=== PATIENT | female | born 1945 | race Caucasian/White ===

== ENCOUNTER 2022-10-27 10:32 | Observation (INO) ==
[2022-10-27] MEDS ORDERED: IOPAMIDOL 100 ML BOTTLE IV ONE (10:33)
--- NOTE | 2022-10-27 10:46 | Emergency Department Note ---
HPI General Chief complaint: Stroke Symptoms Stated complaint: Balance off Time Seen by Provider: 10/27/22 10:45 Source: patient Mode of arrival: wheelchair Limitations: no limitations History of Present Illness HPI Narrative: Narrative: Patient is a 77-year-old female with a complex medical history who presents to the emergency department due to concern with her speech. Patient arrived with slurred speech and difficulty expressing what she wanted to express. She was brought back to the emergency department quickly due to concern for stroke. She endorsed speech concerns as well as imbalance. She also endorsed back pain with radiation to her chest. She denied any other symptoms at that time. She devan rand stated to me that her symptoms began at 8:30 AM, but when speaking to the teleneurologist stated that she did have some unsteadiness to her gait with possible concern for ataxia last night. Related Data Home Medications Medication Instructions Recorded Confirmed cholecalciferol (vitamin D3) 25 25 mcg PO QDAY 09/20/21 10/27/22 mcg (1,000 unit) capsule methimazole 10 mg tablet 10 mg PO .4 times week 09/20/21 10/27/22 calcium carbonate 600 mg-vitamin 1 tab PO BID 04/29/22 10/27/22 D3 10 mcg (400 unit) chewable tablet (Calcium 600 with Vitamin D3) triamcinolone acetonide 55 mcg 1 spray intranasal QDAY PRN 04/29/22 10/27/22 nasal spray aerosol (Nasacort) Congestion amlodipine 5 mg tablet 5 mg PO QHS 10/27/22 10/27/22 bupropion HCl 150 mg 24 hr tablet, 300 mg PO QAM 10/27/22 10/27/22 extended release donepezil 5 mg tablet 5 mg PO QHS 10/27/22 10/27/22 fluorometholone 0.1 % eye 1 drp ophthalmic (eye) DAILY 10/27/22 10/27/22 drops,suspension (FML Liquifilm) losartan 100 1 tab PO QAM 10/27/22 10/27/22 mg-hydrochlorothiazide 25 mg tablet (Hyzaar) metoprolol tartrate 25 mg tablet 12.5 mg PO BID 10/27/22 10/27/22 Previous Rx's Medication Instructions Recorded FreeStyle Lite Strips (blood sugar #100 ea 03/31/20 diagnostic) dulaglutide 0.75 mg/0.5 mL 1.5 mg subcut QWEEK #4 mL 01/22/22 subcutaneous pen injector ([facility]) pen needle, diabetic 32 gauge x See Rx Instructions .Route 02/11/22 5/16" .COMPLEX #100 ea albuterol sulfate 90 mcg/actuation 2 puff inhalation Q4H PRN 03/13/22 aerosol inhaler shortness of breath or wheezing #17 grams trazodone 50 mg tablet 50 mg PO QHS Insomnia #90 tabs 04/16/22 lidocaine 5 % topical patch 1 patch topical QDAY PRN pain #15 04/29/22 ea zolpidem 5 mg tablet (Ambien) 5 mg PO QHS PRN sleep #2 tabs 08/24/22 ondansetron 4 mg disintegrating 4 mg PO Q8H PRN nausea and 09/09/22 tablet vomiting #10 tabs methylphenidate HCl 18 mg 18 mg PO QAM ADHD #28 tabs 09/26/22 tablet,extended release 24 hr montelukast 10 mg tablet 10 mg PO QHS #30 tabs 10/01/22 wedge pillow #1 ea 10/01/22 Prothestic Bra #1 ea 10/09/22 gabapentin 100 mg capsule 100 mg PO QHS #30 caps 10/09/22 insulin detemir U-100 100 unit/mL 16 unit (0.16 mL) subcut QHS 10/09/22 (3 mL) subcutaneous pen (Levemir Diabetes with hyperglycemia 90 FlexTouch U-100 Insulin) days #14.4 mL potassium chloride 10 mEq 10 meq PO BID #180 tabs 10/14/22 tablet,extended release pantoprazole 40 mg tablet,delayed 40 mg PO QDAY #14 tabs 10/21/22 release Aspirin 81 mg PO DAILY 30 days #30 tabs 10/28/22 atorvastatin 40 mg tablet 40 mg PO DAILY 30 days #30 tabs 10/28/22 Allergies Allergy/AdvReac Type Severity Reaction Status Date / Time benazepril [From Lotensin] AdvReac Mild Dry Mucus Verified 10/27/22 18:47 Membranes [id number] AdvReac Mild Other Verified 10/27/22 18:47 [From Trelegy Ellipta] fluoxetine [From Prozac] AdvReac Mild Other Verified 10/27/22 18:47 metformin [From Glucophage] AdvReac Mild Diarrhea Verified 10/27/22 18:47 metoclopramide [From Reglan] AdvReac Mild Dry Mucus Verified 10/27/22 18:47 Membranes metronidazole [From Flagyl] AdvReac Mild Nausea Verified 10/27/22 18:47 morphine AdvReac Mild Other Verified 10/27/22 18:47 nitroglycerin AdvReac Mild Other Verified 10/27/22 18:47 Rosiglitazone [From Avandia] AdvReac Mild Other Verified 10/27/22 18:47 sertraline [From Zoloft] AdvReac Mild Other Verified 10/27/22 18:47 Qdxntdt-RZV-LnO Reductase AdvReac Mild myalgias Verified 10/27/22 18:47 Inhibitor [Phinuee-Sjz-Jva Reductase Inhibitor] umeclidinium AdvReac Mild Other Verified 10/27/22 18:47 [From Trelegy Ellipta] vilanterol AdvReac Mild Other Verified 10/27/22 18:47 [From Trelegy Ellipta] Review of Systems ROS ROS Narrative: Narrative: Constitutional: Reports weakness; Denies fever Eyes: Denies eye pain or vision change ENT ED: Denies throat pain or rhinorrhea Cardiovascular: Denies chest pain, dyspnea on exertion, orthopnea or edema Respiratory: Denies shortness of breath or cough Gastrointestinal: Denies abdominal pain, nausea, vomiting, diarrhea, constipation, hematochezia or melena Musculoskeletal: Reports back pain; Denies myalgia Integumentary: Denies rash or lesions Neurological: Reports weakness, paresthesias and abnormal gait; Denies headache, numbness, confusion or dizziness Endocrine: Denies fatigue or polyuria Hematological/Lymphatic: Denies easy bleeding or easy bruising [facility] Narrative Patient History Narrative: Narrative: Medical/Surgical/Family History All Active Problems (Updated 11/03/22 @ 11:49 by Guerrero Munoz MD) Acute focal neurologic deficit with complete resolution (Acute) TIA (transient ischemic attack) (Acute) Hyponatremia (Acute) UTI (urinary tract infection) (Acute) ADD (attention deficit disorder) (Chronic) Asthma (Chronic) Degeneration of lumbar or lumbosacral intervertebral disc (Chronic) Depressive disorder (Chronic) Diverticulosis of colon (Chronic) Esophageal reflux (Chronic) Fatigue (Chronic) Fatty liver disease, nonalcoholic (Chronic) Hernia, hiatal (Chronic) Bilateral inguinal hernia without obstruction or gangrene (Chronic) Hypertension, essential (Chronic) Mixed hyperlipidemia (Chronic) Sleep apnea (Chronic) Vitamin D deficiency (Chronic) Carcinoma of breast (Chronic) Insomnia (Chronic) Sinusitis, chronic (Chronic) Graves disease (Chronic) Cognitive impairment (Chronic) Herpes zoster (Acute) Abdominal hernia without obstruction and without gangrene (Acute) Medicare annual wellness visit, subsequent (Acute) Medication management (Acute) Eustachian tube dysfunction (Acute) Polyarthralgia (Chronic) Diabetes mellitus with neuropathy (Chronic) CKD (chronic kidney disease) stage 3, GFR 30-59 ml/min (Chronic) MDD (major depressive disorder), recurrent episode, moderate (Chronic) Generalized anxiety disorder (Chronic) Strain of thoracic back region (Acute) Hypertension (Chronic) Upper back pain on left side (Acute) Diverticulitis (Acute) Chronic diarrhea (Chronic) Weakness of both legs (Acute) Emphysema of lung (Acute) Hip pain, bilateral (Acute) Left knee pain (Acute) Allergies (Chronic) Restless legs (Chronic) History of sleep apnea (Chronic) Hypersomnia (Chronic) Snoring (Chronic) Gastroesophageal reflux disease (Chronic) Cough (Chronic) Dyspnea (Chronic) History of asthma (Chronic) Environmental allergies (Chronic) Sensation of fullness in right ear (Chronic) Obstructive sleep apnea (Chronic) Scarring of lung (Chronic) Lung nodule (Chronic) Abnormal EKG (Acute) Medical History Abnormal EKG sleep study, ? 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 s/p lumpectomy. Completed postop radiation treatment 10/04/15 Chronic diarrhea CKD (chronic kidney disease) stage 3, GFR 30-59 ml/min Closed compression fracture of body of lumbar vertebra (08/26/14-Dr Gee) Colon polyps (10/31/14) 11/02/2015-TA TA HP Degeneration of lumbar or lumbosacral intervertebral disc (08/26/14-Dr Gee) Degenerative joint disease Depressive disorder Diabetes mellitus with hyperglycemia Diabetes mellitus with hyperglycemia Diabetes mellitus with neuropathy Diverticulitis of colon (09/13/2014-Dr Covington) Diverticulosis of colon Dyspepsia History of dyspepsia; EGD in 02/2011 showing only hiatal hernia, stable on proton pump inhibitor; recent gastric emptying study and review by Dr. Olson in February-March 2013. Emphysema of lung possible mild findings, PFT 02/26 Encounter for Health Maintenance Examination in Adult Esophageal reflux Eustachian tube dysfunction Fatigue Fatty liver disease, nonalcoholic No notable findings/abnormalities CT 03/27 Graves disease Graves' disease Hemorrhoids 2004 Hemorrhoids seen on colonoscopy in [place] in 2004. Update at 10 years. Hernia, hiatal Herpes zoster Hip pain, bilateral Hypertension, essential Immunization deficiency Insomnia Knee pain Patient has right knee pain. Left knee pain Low back pain Medicare annual wellness visit, subsequent Medication management Mixed hyperlipidemia Mixed hyperlipidemia with multiple medicine intolerances, diet treated Mood disturbance Plantar fasciitis of left foot 09/25/2015-Rodrigo Polyarthralgia Sensation of fullness in right ear Shoulder pain Patient has right shoulder pain. Sleep apnea Had CPAP, noncompliant Splenomegaly Mild Upper back pain on left side Vaginal pain Possible lichen planus Vitamin D deficiency Weakness of both legs Weight loss due to medication Personal Hx. Use of Weight Loss Drugs Previous Redux use with normal echo in 2001 showing only left ventricular hypertrophy and valvular abnormality. Surgical History History of arthroscopic knee surgery 1998 Right knee History of carpal tunnel release 1989 Bilateral carpal tunnel surgery History of cholecystectomy 1980 Status post open cholecystectomy History of colonoscopy (10/31/14) 11/02/2015-TA 10/31/2014-TA HP 2004-Colonoscopy in [place] in 2004 showing diverticuli and hemorrhoids; update at 10 years History of esophagogastroduodenoscopy 02/2011 EGD shows only hiatal hernia, Patient had history of dyspepsia which is stable on proton pump inhibitor, recent gastric emptying study and review by Dr. Olson in February-March 2013. History of gastric stapling 1978 Status post gastric stapling in 1978 with reassessment in [place] in December of 2011 for consideration of gastric bypass and declined History of hernia surgery Bilateral hernia surgeries in distant past History of oophorectomy History of right hip replacement (12/06/14-Deborah) History of shoulder surgery - Right shoulder/ Left shoulder/ Right reverse total shoulder History of surgery A & P Repair History of surgery (08/26/07) Hemorrhoid banding History of vaginal hysterectomy 1996 Status post vaginal hysterectomy/oophorectomy, A&P repair 1996; estrogen replacement therapy; Breast sxam stable, mammogram done 09-24-2012 Family History Aunt Asthma Great Grandfather Asthma Uncle Asthma Mother Malignant neoplasm of female breast Epilepsy Family history of arthritis Disorder of thyroid Father Depression Family history of arthritis Malignant neoplasm of prostate Unknown Diabetes mellitus Essential hypertension Acute myocardial infarction Sister Myasthenia gravis Daughter Heart attack Social History Smoking Status: Former smoker Alcohol Intake Frequency: holiday/special occasion only Substance Use: does not use Exam Narrative Narrative: Narrative: General Limitations: no limitations General appearance: Present alert and in no apparent distress; Absent anxious, appears intoxicated or sleepy Head Head: Present atraumatic and normocephalic Eye Eye: Present PERRL and EOMI; Absent scleral icterus or nystagmus ENT ENT: Present mucous membranes moist; Absent nasal congestion Neck Neck: Present full ROM; Absent tenderness Chest Chest: Present normal inspection and symmetric chest wall rise; Absent tenderness Respiratory Respiratory: Present normal lung sounds bilaterally; Absent respiratory distress or accessory muscle use Cardiovascular Cardiovascular: Present regular rate, normal rhythm and normal heart sounds Adbominal Abdominal: Present soft and normal bowel sounds; Absent distention, tenderness, guarding, rebound or rigidity Extremities Extremities: Present normal inspection and full ROM; Absent tenderness Back Back: Present normal inspection and full ROM; Absent tenderness, CVA tenderness (R) or CVA tenderness (L) Neurological Neurological: Present alert, oriented X3, normal gait, motor sensory deficit (Drift without hitting bed of left lower extremity), reflexes normal and other (Ataxia in bilateral upper extremities); Absent CN II-XII intact (Left-sided facial droop) Psychiatric Psychiatric: Present normal affect and normal mood Skin Skin: Present warm (WNL), dry and normal color Course Vital Signs Vital signs: Vital Signs Temperature 96.9 F L 10/27/22 10:39 Pulse Rate 76 10/27/22 10:39 Respiratory Rate 16 10/27/22 10:39 Blood Pressure 159/97 10/27/22 10:39 Pulse Oximetry (%) 99 10/27/22 10:39 Oxygen Delivery Method Room Air 10/27/22 10:39 Temperature 97.0 F 10/28/22 08:02 Pulse Rate 59 L 10/28/22 10:01 Respiratory Rate 14 10/28/22 09:39 Blood Pressure 124/64 10/28/22 10:01 Pulse Oximetry (%) 96 10/28/22 10:01 Oxygen Delivery Method Room Air 10/28/22 10:01 Oxygen Flow Rate (L/min) 2 10/28/22 08:02 MDM MDM Narrative Medical decision making narrative: Narrative: Patient is a 77-year-old female with a complex medical history who presents to the emergency department due to concern with her speech. A stroke alert was called immediately after initial assessment. At that time she had an NIH stroke scale of 5. I discussed the patient with teleneurology who recommended CT imaging including CT angio head and neck. They were concerned about patient's back pain, and patient told them that her symptoms had actually started the day before, so patient is not a candidate for TNKase at this time. Patient's CT scans are reassuring without any acute abnormality. Patient's symptoms completely resolved including back pain upon reassessment. I discussed patient with teleneurology again, and they recommended that patient be admitted for stroke work-up. I spoke with our hospitalist who agreed to see and evaluate patient for admission. Lab Data 10/27/22 10:43 Labs: Lab Results 10/27/22 10/27/22 10/27/22 Range/Units 10:43 10:43 10:43 WBC 6.7 (4.5-11.0) K/mcL RBC 4.84 (3.59-5.38) M/mcL Hgb 13.5 (11.2-15.7) g/dL Hct 40.2 (34.1-44.9) % POC Hct (36-48) MCV 83.1 (80.0-100.0) fL MCH 27.9 (26.0-34.0) pg MCHC 33.6 (31.0-36.0) g/dL RDW 13.0 (11.5-14.5) % Plt Count 212 (140-440) K/mcL MPV 9.5 (8.8-12.5) fL Immature Gran % (Auto) 0.3 (0.0-0.5) % Neut % (Auto) 58.8 (38.0-78.0) % Lymph % (Auto) 30.3 (15.5-49.0) % Bucks % (Auto) 8.4 (1.0-12.0) % Eos % (Auto) 1.4 (0.0-7.0) % Baso % (Auto) 0.8 (0.0-2.0) % Lymph # (Auto) 2.02 (1.50-4.80) K/mcL Bucks # (Auto) 0.56 (0.10-0.90) K/mcL Eos # (Auto) 0.09 (0.00-0.70) K/mcL Baso # (Auto) 0.05 (0.00-0.30) K/mcL Immature Gran # 0.02 (0.00-0.05) K/mcl Absolute Neutrophils 3.92 (1.80-8.00) K/mcL POC PT (11.9-14.5) POC INR (0.8-1.2) APTT 30.1 (20.0-37.0) sec POC Sodium (133-145) POC Potassium (3.3-5.1) POC Chloride (96-108) POC Total CO2 (22-30) POC BUN (6-20) POC Creatinine (0.6-1.2) POC Glucose (70-105) POC WB Ioniz Calcium (1.16-1.32) Total Bilirubin 0.8 (0.1-1.0) mg/dL Direct Bilirubin < 0.2 (0-0.3) mg/dL AST 23 (<32) U/L ALT 17 (<40) U/L Alkaline Phosphatase 90 (39-117) U/L Total Protein 6.3 (5.9-8.4) gm/dL Albumin 4.0 (3.2-5.2) gm/dL Globulin 2.3 (2.2-3.7) gm/dL Urine Color Urine Appearance (Clear) Urine pH (5.0-9.0) Ur Specific Newman (1.000-1.035) Urine Protein (Negative) mg/dL Urine Glucose (UA) (Negative) mg/dL Urine Ketones (Negative) mg/dL Urine Occult Blood (Negative) mg/dL Urine Nitrate (Negative) Urine Bilirubin (Negative) mg/dL Urine Urobilinogen mg/dL Ur Leukocyte Esterase (Negative) /uL Urine RBC (0-3) /hpf Urine WBC (0-4) /hpf Ur Squamous Epith Cells (0-4) /hpf Urine Bacteria (0) /hpf Ur Culture Indicated? POC Troponin I (0.00-0.08) 10/27/22 10/27/22 10/27/22 Range/Units 10:47 10:51 11:19 WBC (4.5-11.0) K/mcL RBC (3.59-5.38) M/mcL Hgb (11.2-15.7) g/dL Hct (34.1-44.9) % POC Hct 42.0 (36-48) MCV (80.0-100.0) fL MCH (26.0-34.0) pg MCHC (31.0-36.0) g/dL RDW (11.5-14.5) % Plt Count (140-440) K/mcL MPV (8.8-12.5) fL Immature Gran % (Auto) (0.0-0.5) % Neut % (Auto) (38.0-78.0) % Lymph % (Auto) (15.5-49.0) % Bucks % (Auto) (1.0-12.0) % Eos % (Auto) (0.0-7.0) % Baso % (Auto) (0.0-2.0) % Lymph # (Auto) (1.50-4.80) K/mcL Bucks # (Auto) (0.10-0.90) K/mcL Eos # (Auto) (0.00-0.70) K/mcL Baso # (Auto) (0.00-0.30) K/mcL Immature Gran # (0.00-0.05) K/mcl Absolute Neutrophils (1.80-8.00) K/mcL POC PT 12.8 (11.9-14.5) POC INR 1.1 (0.8-1.2) APTT (20.0-37.0) sec POC Sodium 128 L (133-145) POC Potassium 3.9 (3.3-5.1) POC Chloride 90 L (96-108) POC Total CO2 29.0 (22-30) POC BUN 23 H (6-20) POC Creatinine 0.9 (0.6-1.2) POC Glucose 152 H (70-105) POC WB Ioniz Calcium 1.15 L (1.16-1.32) Total Bilirubin (0.1-1.0) mg/dL Direct Bilirubin (0-0.3) mg/dL AST (<32) U/L ALT (<40) U/L Alkaline Phosphatase (39-117) U/L Total Protein (5.9-8.4) gm/dL Albumin (3.2-5.2) gm/dL Globulin (2.2-3.7) gm/dL Urine Color Urine Appearance (Clear) Urine pH (5.0-9.0) Ur Specific Newman (1.000-1.035) Urine Protein (Negative) mg/dL Urine Glucose (UA) (Negative) mg/dL Urine Ketones (Negative) mg/dL Urine Occult Blood (Negative) mg/dL Urine Nitrate (Negative) Urine Bilirubin (Negative) mg/dL Urine Urobilinogen mg/dL Ur Leukocyte Esterase (Negative) /uL Urine RBC (0-3) /hpf Urine WBC (0-4) /hpf Ur Squamous Epith Cells (0-4) /hpf Urine Bacteria (0) /hpf Ur Culture Indicated? POC Troponin I < 0.02 (0.00-0.08) 10/27/22 Range/Units 12:41 WBC (4.5-11.0) K/mcL RBC (3.59-5.38) M/mcL Hgb (11.2-15.7) g/dL Hct (34.1-44.9) % POC Hct (36-48) MCV (80.0-100.0) fL MCH (26.0-34.0) pg MCHC (31.0-36.0) g/dL RDW (11.5-14.5) % Plt Count (140-440) K/mcL MPV (8.8-12.5) fL Immature Gran % (Auto) (0.0-0.5) % Neut % (Auto) (38.0-78.0) % Lymph % (Auto) (15.5-49.0) % Bucks % (Auto) (1.0-12.0) % Eos % (Auto) (0.0-7.0) % Baso % (Auto) (0.0-2.0) % Lymph # (Auto) (1.50-4.80) K/mcL Bucks # (Auto) (0.10-0.90) K/mcL Eos # (Auto) (0.00-0.70) K/mcL Baso # (Auto) (0.00-0.30) K/mcL Immature Gran # (0.00-0.05) K/mcl Absolute Neutrophils (1.80-8.00) K/mcL POC PT (11.9-14.5) POC INR (0.8-1.2) APTT (20.0-37.0) sec POC Sodium (133-145) POC Potassium (3.3-5.1) POC Chloride (96-108) POC Total CO2 (22-30) POC BUN (6-20) POC Creatinine (0.6-1.2) POC Glucose (70-105) POC WB Ioniz Calcium (1.16-1.32) Total Bilirubin (0.1-1.0) mg/dL Direct Bilirubin (0-0.3) mg/dL AST (<32) U/L ALT (<40) U/L Alkaline Phosphatase (39-117) U/L Total Protein (5.9-8.4) gm/dL Albumin (3.2-5.2) gm/dL Globulin (2.2-3.7) gm/dL Urine Color Yellow Urine Appearance Clear (Clear) Urine pH 7.0 (5.0-9.0) Ur Specific Newman 1.038 (1.000-1.035) Urine Protein Negative (Negative) mg/dL Urine Glucose (UA) Negative (Negative) mg/dL Urine Ketones Negative (Negative) mg/dL Urine Occult Blood Negative (Negative) mg/dL Urine Nitrate Negative (Negative) Urine Bilirubin Negative (Negative) mg/dL Urine Urobilinogen Negative mg/dL Ur Leukocyte Esterase 25 A (Negative) /uL Urine RBC < 1 (0-3) /hpf Urine WBC < 1 (0-4) /hpf Ur Squamous Epith Cells 0 (0-4) /hpf Urine Bacteria None (0) /hpf Ur Culture Indicated? No POC Troponin I (0.00-0.08) Discharge Plan Patient/Caregiver Discharge Instructions Pt seen by R DEVELOPER/PA only: No Clinical Impression: Acute focal neurologic deficit with complete resolution Activity: increase activity as tolerated Patient Disposition: Xfer As Inpt ([facility]) Discharge Date/Time: 10/27/22 17:00
[2022-10-27 10:52] LABS: POC Calcium, Ionized 1.15 (1.16-1.32); POC Creatinine 0.9 (0.6-1.2); POC Potassium 3.9 (3.3-5.1)
--- NOTE | 2022-10-27 10:58 | Cat Scan Report ---
History: Acute stroke symptoms TECHNIQUE: The brain was imaged without contrast in an axial plane at 2.5 mm intervals. Sagittal and coronal reformats were created. The radiation exposure was limited using dose reduction technology. FINDINGS: There are mild age-related degenerative changes with mild generalized atrophy. There is no evidence of an infarct, hemorrhage or mass effect. The ventricles are normal in size. There are small physiologic calcifications in the globus pallidus bilaterally. No abnormal extra-axial fluid collection is present. There is mild mucosal thickening along the griffith of a few ethmoid air cells and the sphenoid sinus. Allowing for differences in technique there has been little change from the prior brain MRI done on 03/14/11. IMPRESSION: No acute abnormality Dr. Munoz was called with the report Interpreted and Authenticated by: Jerald Canales 10/27/22
[2022-10-27 11:22] LABS: POC INR 1.1 (0.8-1.2); POC Pro Time 12.8 (11.9-14.5)
--- NOTE | 2022-10-27 11:31 | Cat Scan Report ---
History: Acute stroke symptoms with difficulty speaking and disc equilibrium TECHNIQUE: Following injection of intravenous nonionic contrast, arterial phase images were acquired from the level of the midthoracic aorta to the top of the head. Sagittal coronal and MIPS images were created along with curved linear reformatted views of the carotid arteries. The radiation exposure was limited using dose reduction technology. FINDINGS: NECK: The visualized portion of the heart appears normal. There few calcified plaques in the left anterior descending coronary artery. Thoracic aorta is normal in caliber with no aneurysm or dissection. There are few scattered plaques along the wall. Origins of the great vessels arising from the aorta are normal except for moderate amount of plaque distortion the left subclavian. This is not causing stenosis. The right common carotid is moderately tortuous but normal in caliber. There is a moderate amount calcified plaque at the origin of the right internal carotid. This is causing less than 50% stenosis. There is mild plaque formation in the left carotid bifurcation with less than 25% stenosis. Both internal carotids are very tortuous and elongated. The right internal carotid forms a full loop. The vertebral arteries are normal in caliber. The left is dominant. Patient has a multinodular goiter. There is an indeterminate nodule inferiorly in the left lobe which measures 2.0 x 2.5 cm. This had been evaluated by ultrasound on . The nodule measured 1.9 x 1.9 cm that time. There is degenerative disc disease and arthritis at multiple levels in the mid and lower neck. Brain: [place] is normal. The anterior communicating artery is normal. 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 There is normal blood flow in the anterior and middle cerebral arteries as well as both posterior cerebral arteries. Posterior fossa circulation is normal. There is no intracranial vascular occlusion stenosis or thrombosis. No aneurysm or abnormal enhancing lesion is present. IMPRESSION: Atherosclerosis in the carotid bifurcations bilaterally causing a less than 50% stenosis the right internal carotid and a nonhemodynamically stenosis of the left internal carotid. Normal intracranial arterial circulation Multinodular goiter. There is an enlarging indeterminate nodule in the left lobe. A follow-up thyroid ultrasound as an outpatient is suggested. Dr. Munoz was called with the report Interpreted and Authenticated by: Jerald Canales 10/27/22
[2022-10-27 11:37] LABS: Basophils # (Auto) 0.05 K/mcL (0.00-0.30); Basophils % (Auto) 0.8 % (0.0-2.0); Eosinophils # (Auto) 0.09 K/mcL (0.00-0.70); Eosinophils % (Auto) 1.4 % (0.0-7.0); Hematocrit 40.2 % (34.1-44.9); Hemoglobin 13.5 g/dL (11.2-15.7); Lymphocytes # (Auto) 2.02 K/mcL (1.50-4.80); Lymphocytes % (Auto) 30.3 % (15.5-49.0); Mean Cell Volume 83.1 fL (80.0-100.0); Mean Corpuscular HGB Conc 33.6 g/dL (31.0-36.0); Mean Platelet Volume 9.5 fL (8.8-12.5); Monocytes # (Auto) 0.56 K/mcL (0.10-0.90); Monocytes % (Auto) 8.4 % (1.0-12.0); Neutrophils % (Auto) 58.8 % (38.0-78.0); Platelet Count 212 K/mcL (140-440); RBC 4.84 M/mcL (3.59-5.38); WBC 6.7 K/mcL (4.5-11.0)
[2022-10-27 12:12] LABS: ALT/SGPT 17 U/L (<40); AST/SGOT 23 U/L (<32); Alkaline Phosphatase 90 U/L (39-117); Bilirubin,Direct < 0.2 mg/dL (0-0.3); Bilirubin,Total 0.8 mg/dL (0.1-1.0); Globulin 2.3 gm/dL (2.2-3.7)
[2022-10-27] MEDS ORDERED: 0.9 % SODIUM CHLORIDE 500 ML IV ONE (12:18)
[2022-10-27] MEDS ORDERED: HYDROmorphone 1 MG/ML SYRINGE IV PRN (13:26)
[2022-10-27 14:11] LABS: Appearance,Urine CLEAR (Clear); Bilirubin,Urine Negative (Negative); Color,Urine YELLOW; Culture Indicated,Urine No; Glucose,Urine (UA) Negative (Negative); Ketones,Urine Negative (Negative); Leukocyte Esterase,Urine 25 /uL (Negative); Nitrate,Urine Negative (Negative); Protein,Urine Negative (Negative); Specific Gravity,Urine 1.038 (1.000-1.035); Urine Blood Negative (Negative); Urine RBC < 1 /hpf (0-3); Urine Squamous Epithelial Cell 0 /hpf (0-4); Urine WBC < 1 /hpf (0-4); Urobilinogen,Urine Negative
--- NOTE | 2022-10-27 15:48 | EKG ---
[facility] Test Date: 2022-10-27 Pat Name: Natasha Hager Department: ED Room: Gender: Female [employer]fer [employer] Operator: debra : 1945 Requested By: Guerrero Munoz Order Number: [id number] Reading MD: Armen Ahn Measurements Intervals [place] Rate: 72 P: -87 NV: 252 QRS: -45 QRSD: 95 T: 6 QT: 401 QTc: 439 Interpretive Statements Sinus or ectopic atrial rhythm Prolonged NV interval Abnormal R-wave progression, late transition Inferior infarct, old Electronically Signed On 10-27-2022 15:47:47 PST by Armen Ahn /store/M0/[id number]
--- NOTE | 2022-10-27 15:59 | Internal Med History&Physical ---
HPI History of Present Illness Patient information: Note initiated : 10/27/22 at 3:56 pm Service Date, if different from initiated Date: [] Patient: Natasha Hager 77 y/o F admitted on for Balance off. Chief Complaint: [slurred speech, facial stiffness, legs incoordination] Chief complaint: slurred speech, facial stiffness, legs incoordination History of present illness: Ms. Hager is a 77 year old F history of ADHD, chronic kidney impairment, depressions, type 2 diabetes mellitus, essential hypertensions, presenting with 2-day history bilateral legs incoordination as well as 1 day history of slurred speech, facial droopiness, facial stiffness. There was no prior similar episode. Yesterday evening patient started to experience bilateral leg incoordination's. This morning at 830, she woke up with slurred speech, facial stiffness, and mild left facial droopiness. She denies any upper or lower extremity weakness or numbness. She denies confusions. She denies headaches. She denies nausea or vomiting. She denies chest pain or shortness of breath or palpitations. By now all her symptoms have resolved. NIH SS of 5 at presentation. Vital signs within normal limits. Labs significant for mild hyponatremia with serum sodium 128. UA suggesting the presence of urinary tract infections versus asymptomatic bacteriuria. CT of the head did not show any sign of intracranial bleed or acute ischemic stroke. CTA head and the neck showing atherosclerosis in the carotid bifurcations bilaterally causing a less than 50% stenosis in the right internal carotid and a non-hemodynamically significant stenosis of the left internal carotid. Admission request is called for TIA work-up. Constitutional Constitutional: Absent chills, excessive sweating, fatigue, fever(s) or weakness EENT Eyes: Absent blurry vision, change in vision, loss of vision or other visual disturbances Ears: Absent decreased hearing or tinnitus Nose, mouth and throat: Absent abnormal hearing, dry mouth, headache(s), nasal congestion or sore throat Cardiovascular Cardiovascular: Absent chest pain, chest pain at rest, edema, irregular heart rhythm or palpatations Respiratory Respiratory: Absent cough, dyspnea or wheezing Gastrointestinal Gastrointestinal: Absent abdominal pain, constipation, diarrhea, nausea or vomiting Musculoskeletal Musculoskeletal: Absent back pain, deformity, limited range of motion, muscle cramps, muscle weakness or numbness Integumentary Integumentary: Absent lesions, rash or wounds Neurological Neurological: Present lack of coordination (Resolved); Absent focal weakness, headache(s) or numbness Additional comments: facial droopiness: resolved Slurred speech: resolved Psychiatric Psychiatric: Absent anxiety, depression or hallucinations PFSH PFSH All Active Problems (Updated 10/27/22 @ 16:06 by Ajith Khan MD) TIA (transient ischemic attack) (Acute) Hyponatremia (Acute) UTI (urinary tract infection) (Acute) ADD (attention deficit disorder) (Chronic) Asthma (Chronic) Degeneration of lumbar or lumbosacral intervertebral disc (Chronic) Depressive disorder (Chronic) Diverticulosis of colon (Chronic) Esophageal reflux (Chronic) Fatigue (Chronic) Fatty liver disease, nonalcoholic (Chronic) Hernia, hiatal (Chronic) Bilateral inguinal hernia without obstruction or gangrene (Chronic) Hypertension, essential (Chronic) Mixed hyperlipidemia (Chronic) Sleep apnea (Chronic) Vitamin D deficiency (Chronic) Carcinoma of breast (Chronic) Insomnia (Chronic) Sinusitis, chronic (Chronic) Graves disease (Chronic) Cognitive impairment (Chronic) Herpes zoster (Acute) Abdominal hernia without obstruction and without gangrene (Acute) Medicare annual wellness visit, subsequent (Acute) Medication management (Acute) Eustachian tube dysfunction (Acute) Polyarthralgia (Chronic) Diabetes mellitus with neuropathy (Chronic) CKD (chronic kidney disease) stage 3, GFR 30-59 ml/min (Chronic) MDD (major depressive disorder), recurrent episode, moderate (Chronic) Generalized anxiety disorder (Chronic) Strain of thoracic back region (Acute) Hypertension (Chronic) Upper back pain on left side (Acute) Diverticulitis (Acute) Chronic diarrhea (Chronic) Weakness of both legs (Acute) Emphysema of lung (Acute) Hip pain, bilateral (Acute) Left knee pain (Acute) Allergies (Chronic) Restless legs (Chronic) History of sleep apnea (Chronic) Hypersomnia (Chronic) Snoring (Chronic) Gastroesophageal reflux disease (Chronic) Cough (Chronic) Dyspnea (Chronic) History of asthma (Chronic) Environmental allergies (Chronic) Sensation of fullness in right ear (Chronic) Obstructive sleep apnea (Chronic) Scarring of lung (Chronic) Lung nodule (Chronic) Abnormal EKG (Acute) Medical History Abnormal EKG sleep study, ? 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 s/p lumpectomy. Completed postop radiation treatment 10/04/15 Chronic diarrhea CKD (chronic kidney disease) stage 3, GFR 30-59 ml/min Closed compression fracture of body of lumbar vertebra (08/26/14-Dr Gee) Colon polyps (10/31/14) 11/02/2015-TA TA HP Degeneration of lumbar or lumbosacral intervertebral disc (08/26/14-Dr Gee) Degenerative joint disease Depressive disorder Diabetes mellitus with hyperglycemia Diabetes mellitus with hyperglycemia Diabetes mellitus with neuropathy Diverticulitis of colon (09/13/2014-Dr Covington) Diverticulosis of colon Dyspepsia History of dyspepsia; EGD in 02/2011 showing only hiatal hernia, stable on proton pump inhibitor; recent gastric emptying study and review by Dr. Olson in February-March 2013. Emphysema of lung possible mild findings, PFT 02/26 Encounter for Health Maintenance Examination in Adult Esophageal reflux Eustachian tube dysfunction Fatigue Fatty liver disease, nonalcoholic No notable findings/abnormalities CT 03/27 Graves disease Graves' disease Hemorrhoids 2004 Hemorrhoids seen on colonoscopy in [place] in 2004. Update at 10 years. Hernia, hiatal Herpes zoster Hip pain, bilateral Hypertension, essential Immunization deficiency Insomnia Knee pain Patient has right knee pain. Left knee pain Low back pain Medicare annual wellness visit, subsequent Medication management Mixed hyperlipidemia Mixed hyperlipidemia with multiple medicine intolerances, diet treated Mood disturbance Plantar fasciitis of left foot 09/25/2015-Rodrigo Polyarthralgia Sensation of fullness in right ear Shoulder pain Patient has right shoulder pain. Sleep apnea Had CPAP, noncompliant Splenomegaly Mild Upper back pain on left side Vaginal pain Possible lichen planus Vitamin D deficiency Weakness of both legs Weight loss due to medication Personal Hx. Use of Weight Loss Drugs Previous Redux use with normal echo in 2001 showing only left ventricular hyp ertrophy and valvular abnormality. Surgical History History of arthroscopic knee surgery 1998 Right knee History of carpal tunnel release 1989 Bilateral carpal tunnel surgery History of cholecystectomy 1980 Status post open cholecystectomy History of colonoscopy (10/31/14) 11/02/2015-TA 10/31/2014-TA HP 2004-Colonoscopy in [place] in 2004 showing diverticuli and hemorrhoids; update at 10 years History of esophagogastroduodenoscopy 02/2011 EGD shows only hiatal hernia, Patient had history of dyspepsia which is stable on proton pump inhibitor, recent gastric emptying study and review by Dr. Olson in February-March 2013. History of gastric stapling 1978 Status post gastric stapling in 1978 with reassessment in [place] in December of 2011 for consideration of gastric bypass and declined History of hernia surgery Bilateral hernia surgeries in distant past History of oophorectomy History of right hip replacement (12/06/14-Deborah) History of shoulder surgery - Right shoulder/ Left shoulder/ Right reverse total shoulder History of surgery A & P Repair History of surgery (08/26/07) Hemorrhoid banding History of vaginal hysterectomy 1996 Status post vaginal hysterectomy/oophorectomy, A&P repair 1996; estrogen replacement therapy; Breast sxam stable, mammogram done 09-24-2012 Family History Aunt Asthma Great Grandfather Asthma Uncle Asthma Mother Malignant neoplasm of female breast Epilepsy Family history of arthritis Disorder of thyroid Father Depression Family history of arthritis Malignant neoplasm of prostate Unknown Diabetes mellitus Essential hypertension Acute myocardial infarction Sister Myasthenia gravis Daughter Heart attack Social History household members: alone housing: house lives independently: Yes marital status: occupational status: retired pets and animals: No other: 4 children/gc smoking status: Former smoker quit date: 09/07/1959 pack-years: 10 alcohol intake frequency: holiday/special occasion only substance use type: does not use additional history: Pt. is long time participant of [employer] Home Medications and Allergies Home Medications Medication Instructions Recorded Confirmed Type FreeStyle Lite Strips (blood sugar #100 ea 12/06/19 10/09/22 Rx diagnostic) cholecalciferol (vitamin D3) 25 25 mcg PO QDAY 09/20/21 10/09/22 History mcg (1,000 unit) capsule methimazole 10 mg tablet 10 mg PO .4 times week 09/20/21 10/09/22 History omeprazole 20 mg capsule,delayed 20 mg PO BID #180 caps 09/20/21 10/09/22 Rx release dulaglutide 0.75 mg/0.5 mL 1.5 mg subcut QWEEK #4 mL 01/22/22 10/09/22 Rx subcutaneous pen injector (Trulicity) pen needle, diabetic 32 gauge x See Rx Instructions .Route 02/11/22 10/09/22 Rx 5/16" .COMPLEX #100 ea albuterol sulfate 90 mcg/actuation 2 puff inhalation Q4H PRN 03/13/22 10/09/22 Rx aerosol inhaler shortness of breath or wheezing #17 grams salmeterol 50 mcg/dose blister 1 inh inhalation BID #60 ea 04/08/22 10/09/22 Rx powder for inhalation trazodone 50 mg tablet 50 mg PO QHS Insomnia #90 tabs 04/16/22 10/09/22 Rx calcium carbonate 600 mg-vitamin 1 tab PO BID 04/29/22 10/09/22 History D3 10 mcg (400 unit) chewable tablet (Calcium 600 with Vitamin D3) fexofenadine 180 mg tablet 180 mg PO BID 04/29/22 10/09/22 History (Freya Allergy) lidocaine 5 % topical patch 1 patch topical QDAY PRN pain #15 04/29/22 10/09/22 Rx ea triamcinolone acetonide 55 mcg 1 spray intranasal QDAY PRN 04/29/22 10/09/22 History nasal spray aerosol (Nasacort) bupropion HCl 150 mg 24 hr tablet, 450 mg PO QDAY anxiety #270 tabs 08/01/22 10/09/22 Rx extended release metoprolol tartrate 25 mg tablet See Rx Instructions .Route 08/12/22 10/09/22 Rx .COMPLEX #90 tabs zolpidem 5 mg tablet (Ambien) 5 mg PO QHS PRN sleep #2 tabs 08/24/22 10/09/22 Rx ondansetron 4 mg disintegrating 4 mg PO Q8H PRN nausea and 09/09/22 10/09/22 Rx tablet vomiting #10 tabs amlodipine 5 mg tablet 5 mg PO QDAY #90 tabs 09/23/22 10/09/22 Rx methylphenidate HCl 18 mg 18 mg PO QAM ADHD #28 tabs 09/26/22 10/09/22 Rx tablet,extended release 24 hr montelukast 10 mg tablet 10 mg PO QHS #30 tabs 10/01/22 10/09/22 Rx wedge pillow #1 ea 10/01/22 10/09/22 Rx donepezil 5 mg tablet See Rx Instructions .Route 10/08/22 10/09/22 Rx .COMPLEX #90 tabs Prothestic Bra #1 ea 10/09/22 10/09/22 Rx gabapentin 100 mg capsule 100 mg PO QHS #30 caps 10/09/22 10/09/22 Rx insulin detemir U-100 100 unit/mL 16 unit (0.16 mL) subcut QHS 10/09/22 10/09/22 Rx (3 mL) subcutaneous pen (Levemir Diabetes with hyperglycemia 90 FlexTouch U-100 Insulin) days #14.4 mL losartan 100 See Rx Instructions .Route 10/14/22 Rx mg-hydrochlorothiazide 25 mg tablet .COMPLEX #90 tabs potassium chloride 10 mEq 10 meq PO BID #180 tabs 10/14/22 Rx tablet,extended release pantoprazole 40 mg tablet,delayed 40 mg PO QDAY #14 tabs 10/21/22 Rx release Allergies Allergy/AdvReac Type Severity Reaction Status Date / Time metformin [From Glucophage] Allergy Intermediate Diarrhea Verified 10/09/22 13:27 metronidazole [From Flagyl] Allergy Intermediate Nausea Verified 10/09/22 13:27 benazepril [From Lotensin] AdvReac Mild Dry Mucus Verified 10/09/22 13:27 Membranes fluoxetine [From Prozac] AdvReac Mild Other Verified 10/09/22 13:27 metoclopramide [From Reglan] AdvReac Mild Dry Mucus Verified 10/09/22 13:27 Membranes morphine AdvReac Mild Other Verified 10/09/22 13:27 nitroglycerin AdvReac Mild Other Verified 10/09/22 13:27 Rosiglitazone [From Avandia] AdvReac Mild Other Verified 10/09/22 13:27 sertraline [From Zoloft] AdvReac Mild Other Verified 10/09/22 13:27 [id number] Reductase AdvReac Mild myalgias Verified 10/09/22 13:27 Inhibitor [Xvsexfo-Ndv-Ars Reductase Inhibitor] EXAM Constitutional Vitals: Temp Pulse Resp BP Pulse Ox O2 Del Method 36.1 C L 73 16 124/93 95 Room Air 10/27/22 10:39 10/27/22 15:31 10/27/22 10:39 10/27/22 15:31 10/27/22 15:31 10/27/22 12:45 General appearance: cooperative and no acute distress Head Head exam: Present atraumatic and normocephalic Eye Eye exam: Present EOMI and PERRL ENT ENT exam: Present mucous membranes moist, normal exam and normal external ear exam Neck Neck exam: Present normal inspection; Absent lymphadenopathy, tenderness or thyromegaly Respiratory Respiratory exam: Absent accessory muscle use, respiratory distress or wheezes Cardiovascular Cardiovascular exam: Present normal rate and rhythm; Absent JVD GI/Abdominal GI/Abdominal exam: Present normal bowel sounds and soft; Absent organomegaly or tenderness Extremities Exam Extremities exam: Present full ROM, normal capillary refill and normal inspection; Absent tenderness Neurological Exam Neurological exam: Present alert, CN II-XII intact and oriented X3; Absent motor sensory deficit Psychiatric Psychiatric exam: Present normal affect and normal mood; Absent anxious or depressed Skin Skin exam: Present dry and intact DATA Data Completed and Pending Labs: Labs from last 24 hours 10/27/22 10/27/22 10/27/22 12:41 11:19 10:51 WBC RBC Hgb Hct POC Hct MCV MCH MCHC RDW Plt Count MPV Immature Gran % (Auto) Neut % (Auto) Lymph % (Auto) Norman % (Auto) Eos % (Auto) Baso % (Auto) Lymph # (Auto) Norman # (Auto) Eos # (Auto) Baso # (Auto) Immature Gran # Absolute Neutrophils POC PT 12.8 POC INR 1.1 APTT POC Sodium POC Potassium POC Chloride POC Total CO2 POC BUN POC Creatinine POC Glucose POC WB Ioniz Calcium Total Bilirubin Direct Bilirubin AST ALT Alkaline Phosphatase Total Protein Albumin Globulin Urine Color Yellow Urine Appearance Clear Urine pH 7.0 Ur Specific [place] 1.038 Urine Protein Negative Urine Glucose (UA) Negative Urine Ketones Negative Urine Occult Blood Negative Urine Nitrate Negative Urine Bilirubin Negative Urine Urobilinogen Negative Ur Leukocyte Esterase 25 A Urine RBC < 1 Urine WBC < 1 Ur Squamous Epith Cells 0 Urine Bacteria None Ur Culture Indicated? No POC Troponin I < 0.02 10/27/22 10/27/22 10/27/22 10:47 10:43 10:43 WBC RBC Hgb Hct POC Hct 42.0 MCV MCH MCHC RDW Plt Count MPV Immature Gran % (Auto) Neut % (Auto) Lymph % (Auto) Norman % (Auto) Eos % (Auto) Baso % (Auto) Lymph # (Auto) Norman # (Auto) Eos # (Auto) Baso # (Auto) Immature Gran # Absolute Neutrophils POC PT POC INR APTT 30.1 POC Sodium 128 L POC Potassium 3.9 POC Chloride 90 L POC Total CO2 29.0 POC BUN 23 H POC Creatinine 0.9 POC Glucose 152 H POC WB Ioniz Calcium 1.15 L Total Bilirubin 0.8 Direct Bilirubin < 0.2 AST 23 ALT 17 Alkaline Phosphatase 90 Total Protein 6.3 Albumin 4.0 Globulin 2.3 Urine Color Urine Appearance Urine pH Ur Specific [place] Urine Protein Urine Glucose (UA) Urine Ketones Urine Occult Blood Urine Nitrate Urine Bilirubin Urine Urobilinogen Ur Leukocyte Esterase Urine RBC Urine WBC Ur Squamous Epith Cells Urine Bacteria Ur Culture Indicated? POC Troponin I 10/27/22 10:43 WBC 6.7 RBC 4.84 Hgb 13.5 Hct 40.2 POC Hct MCV 83.1 MCH 27.9 MCHC 33.6 RDW 13.0 Plt Count 212 MPV 9.5 Immature Gran % (Auto) 0.3 Neut % (Auto) 58.8 Lymph % (Auto) 30.3 Norman % (Auto) 8.4 Eos % (Auto) 1.4 Baso % (Auto) 0.8 Lymph # (Auto) 2.02 Norman # (Auto) 0.56 Eos # (Auto) 0.09 Baso # (Auto) 0.05 Immature Gran # 0.02 Absolute Neutrophils 3.92 POC PT POC INR APTT POC Sodium POC Potassium POC Chloride POC Total CO2 POC BUN POC Creatinine POC Glucose POC WB Ioniz Calcium Total Bilirubin Direct Bilirubin AST ALT Alkaline Phosphatase Total Protein Albumin Globulin Urine Color Urine Appearance Urine pH Ur Specific [place] Urine Protein Urine Glucose (UA) Urine Ketones Urine Occult Blood Urine Nitrate Urine Bilirubin Urine Urobilinogen Ur Leukocyte Esterase Urine RBC Urine WBC Ur Squamous Epith Cells Urine Bacteria Ur Culture Indicated? POC Troponin I A/P Assessment and plan (1) ADD (attention deficit disorder): Status: Chronic Qualifiers: Hyperactivity presence: absent Qualified Code(s): F98.8 - Other specified behavioral and emotional disorders with onset usually occurring in childhood and adolescence (2) Hypertension, essential: Status: Chronic (3) Diabetes mellitus with neuropathy: Status: Chronic Qualifiers: Diabetes mellitus type: type 2 Diabetes mellitus mcc insulin use: with mcc use Qualified Code(s): E11.40 - Type 2 diabetes mellitus with diabetic neuropathy, unspecified; Z79.4 - jail (current) use of insulin (4) MDD (major depressive disorder), recurrent episode, moderate: Status: Chronic (5) UTI (urinary tract infection): Status: Acute (6) Hyponatremia: Status: Acute (7) TIA (transient ischemic attack): Status: Acute (8) Cognitive impairment: Status: Chronic Comment: Unclear etiology, ?vascular, hx polypharmacy MMSE 01/03/22 Narrative A/P Narrative: Assessment and Plans: 1. TIA: Observation PCU telemetry 2D echocardiogram MRI brain stroke protocol Lipid panel HgA1c ASA Lipitor NIH stroke scale q shift Neurocheck q4hr Physical therapy Occupational therapy Speech therapy 2. 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 UTI: Blood culture Urine culture cbc w/ auto diff in the morning to trend WBC Bactrim DS 4. ADHD: Methylphenidate 5. T2DM with diabetic neuropathy: HgA1c Hold oral hypoglycemics Insulin Lantus 16 unit HS Insulin Lispro SSI AC HS Gabapentin Accu Check AC HS Hypoglycemia protocol 6. Essential hypertension: Metoprolol tartrate HCTZ-Losartan 7. Depression: Bupropion 8. Cognitive impairment: Donepezil GI ppx: PPI DVT ppx: Lovenox Code status: Full Prognosis: stable Disposition: observation PCU Time Spent With Patient Time: Total time spent is greater than 50% in coordination of care (as documented) at patient's floor/unit and/or counseling patient: Initial: Total time with patient: 55 - 74 minutes QUALITY Stroke Symptom Onset Unknown: No
[2022-10-27] MEDS ORDERED: ONDANSETRON 4 MG/2 ML VIAL IV PRN (17:14)
[2022-10-27] MEDS ORDERED: LACTULOSE 20 GM/30 ML ORAL.SOL PO PRN (17:14)
[2022-10-27] MEDS ORDERED: SENNOSIDES 1 TABLET PO PRN (17:14)
[2022-10-27] MEDS ORDERED: ACETAMINOPHEN 325 MG TABLET PO PRN (17:14)
[2022-10-27] MEDS ORDERED: DEXTROSE 50% 50 ML VIAL IV PRN (17:14)
[2022-10-27] MEDS ORDERED: DEXTROSE 31 GM ORAL.SUSP PO PRN (17:14)
[2022-10-27] MEDS ORDERED: IPRATROPIUM/ALBUTEROL 3 ML AMPUL.NEB NEB PRN (17:14)
[2022-10-27] MEDS: INSULIN LISPRO 1 UNIT/0.01 ML UNIT SQ SCH ×2 (17:42→22:05)
[2022-10-27] MEDS ORDERED: ZOLPIDEM 5 MG TABLET PO PRN (17:49)
[2022-10-27] MEDS ORDERED: LOSARTAN/HCTZ 100/25 TABLET PO SCH (18:00)
--- NOTE | 2022-10-27 18:23 | Magnetic Resonance Report ---
History: New stroke symptoms with slurred speech and facial droop TECHNIQUE: Brain was imaged using stroke protocol. FINDINGS: There is no evidence of an infarct, hemorrhage or mass. The largest is in the right frontal lobe and measures 5 x 6 mm. They have no restricted diffusion or mass effect. Many of these were present on the prior brain MRI done on 03/14/11. These have slowly increased in number and size. No cortical lesion is present. Ventricles are normal in size. There is mild generalized atrophy. No abnormal extra-axial fluid collection is present. Incidentally noted is hyperostosis frontalis internus with thickening of the inner table of the frontal bones. IMPRESSION: No evidence of infarct or hemorrhage. Mild age-related degenerative changes with mild atrophy and mild white matter ischemia or degeneration in the frontal and parietal lobes. Dr. Khan was called with report Interpreted and Authenticated by: Jerald Canales 10/27/22
[2022-10-27] MEDS: POTASSIUM CHLORIDE 10 MEQ TABLET PO SCH (18:40)
[2022-10-27] MEDS: 0.9 % SODIUM CHLORIDE 1,000 ML IV SCH (18:41)
[2022-10-27 19:48] LABS: Blood Urea Nitrogen 22 mg/dL (8-23); Calcium 8.9 mg/dL (8.6-10.4); Carbon Dioxide 28 mmol/L (22-30); Chloride 92 mmol/L (96-108); Glomerular Filtration Rate 54; Glucose 124 mg/dL (70-105)
[2022-10-27] MEDS ORDERED: ALBUTEROL SULFATE 60 PUFF INHALER INH PRN (20:16)
[2022-10-27] MEDS ORDERED: LIDOCAINE PATCH TOPICAL PRN (20:16)
[2022-10-27] MEDS ORDERED: TRIAMCINOLONE ACETONIDE 55 MCG NAS PRN (20:54)
[2022-10-27] MEDS ORDERED: INSULIN GLARGINE, HUMAN 1 UNIT/0.01 ML SQ SCH (21:00)
[2022-10-27] MEDS ORDERED: METOPROLOL TARTRATE 25 MG TABLET PO SCH (21:00)
[2022-10-27] MEDS ORDERED: GABAPENTIN 100 MG CAPSULE PO SCH (21:00)
[2022-10-27] MEDS ORDERED: traZODone HCL 50 MG TABLET PO SCH (21:00)
[2022-10-27] MEDS ORDERED: DONEPEZIL 5 MG TABLET PO SCH (21:00)
[2022-10-27] MEDS ORDERED: OMEPRAZOLE 20 MG CAPSULE PO SCH (21:00)
[2022-10-27] MEDS ORDERED: DONEPEZIL 10 MG TABLET PO SCH (21:00)
[2022-10-27] MEDS ORDERED: amLODIPine 5 MG TABLET PO SCH (21:00)
[2022-10-27] MEDS ORDERED: MONTELUKAST 10 MG TABLET PO SCH (21:00)
[2022-10-27] MEDS: SULFAMETHOXAZOLE/TRIMETHOPRIM 1 TABLET PO SCH (22:03)
[2022-10-27] MEDS: METOPROLOL TARTRATE 25 MG TABLET PO SCH (22:04)
[2022-10-27] MEDS: CALCIUM (OYSTER SHELL) 500 MG TABLET PO SCH (22:04)
[2022-10-27] MEDS: 0.9 % SODIUM CHLORIDE 10 ML SYRINGE IV SCH (22:05)
[2022-10-27] MEDS: DOCUSATE SODIUM 100 MG CAPSULE PO SCH (22:06)
[2022-10-28 02:11] LABS: Blood Urea Nitrogen 19 mg/dL (8-23); Calcium 8.4 mg/dL (8.6-10.4); Carbon Dioxide 26 mmol/L (22-30); Chloride 95 mmol/L (96-108); Glomerular Filtration Rate 61; Glucose 127 mg/dL (70-105)
[2022-10-28] MEDS: 0.9 % SODIUM CHLORIDE 1,000 ML IV SCH (05:05)
[2022-10-28] MEDS: 0.9 % SODIUM CHLORIDE 10 ML SYRINGE IV SCH (05:05)
[2022-10-28 06:46] LABS: Estimated Average Glucose(eAG) 143 mg/dL; Hemoglobin A1C 6.6 % Hgb (4.0-6.0)
[2022-10-28 06:57] LABS: HDL Cholesterol 53 mg/dL (>40); LDL Cholesterol,Calculated 93 mg/dL (<100); Non-HDL Cholesterol 117 mg/dL (<130); Triglycerides 122 mg/dL (<150)
[2022-10-28 07:09] LABS: Blood Urea Nitrogen 17 mg/dL (8-23); Calcium 8.4 mg/dL (8.6-10.4); Carbon Dioxide 27 mmol/L (22-30); Chloride 96 mmol/L (96-108); Glomerular Filtration Rate 61; Glucose 116 mg/dL (70-105)
[2022-10-28] MEDS ORDERED: PANTOPRAZOLE 40 MG TABLET PO SCH (07:30)
[2022-10-28] MEDS ORDERED: METHIMAZOLE 10 MG TABLET PO SCH (07:30)
[2022-10-28] MEDS: INSULIN LISPRO 1 UNIT/0.01 ML UNIT SQ SCH (07:44)
[2022-10-28] MEDS: POTASSIUM CHLORIDE 10 MEQ TABLET PO SCH (07:46)
[2022-10-28] MEDS ORDERED: Fluticasone-Umeclidin-Vilanter [Trelegy Ellipta] Inhaler INH SCH (09:00)
[2022-10-28] MEDS ORDERED: ENOXAPARIN 40 MG/0.4 ML SYRINGE SQ SCH (09:00)
[2022-10-28] MEDS ORDERED: LOSARTAN 50 MG TABLET PO SCH (09:00)
[2022-10-28] MEDS ORDERED: buPROPion 150 MG TAB.XL.24H PO SCH ×2 (09:00)
[2022-10-28] MEDS ORDERED: CELECOXIB 200 MG CAPSULE PO SCH (09:00)
[2022-10-28] MEDS ORDERED: METHYLPHENIDATE HCL 18 MG PO SCH (09:00)
[2022-10-28] MEDS ORDERED: ATORVASTATIN 40 MG TABLET PO SCH (09:00)
[2022-10-28] MEDS ORDERED: amLODIPine 5 MG TABLET PO SCH (09:00)
[2022-10-28] MEDS ORDERED: HYDROCHLOROTHIAZIDE 25 MG TABLET PO SCH (09:00)
[2022-10-28] MEDS ORDERED: ASPIRIN 81 MG TAB.CHEW PO SCH (09:00)
[2022-10-28] MEDS ORDERED: FLUOROMETHOLONE 5 ML DROPS.SUSP OP SCH (09:00)
[2022-10-28] MEDS ORDERED: VITAMIN D3 25 MCG TABLET PO SCH (09:00)
[2022-10-28] MEDS: SULFAMETHOXAZOLE/TRIMETHOPRIM 1 TABLET PO SCH (09:27)
[2022-10-28] MEDS: CALCIUM (OYSTER SHELL) 500 MG TABLET PO SCH (09:27)
[2022-10-28] MEDS: METOPROLOL TARTRATE 25 MG TABLET PO SCH (09:28)
[2022-10-28] MEDS: DOCUSATE SODIUM 100 MG CAPSULE PO SCH (09:28)
--- NOTE | 2022-10-28 10:13 | Discharge Summary ---
Discharge Provider Provider IMPORTANT FOLLOW-UP INFORMATION FOR PCP: Patient information: Note initiated : 10/28/22 at 10:10 am Service Date, if different from initiated Date: [] Patient: Natasha Hager 77 y/o F admitted on 10/27/22 for Balance off. Chief Complaint: [] Date of admission: 10/27/22 17:00 Discharge date: 10/28/22 Primary care physician: Paramjit Hunt MD Attending physician on admission: Ajith Khan Consults: 10/27/22 Consult to Physician [CONS] Stat Comment: Consulting Provider: Ajith Khan Reason For Exam: Physician to Consult 10/27/22 10:43 Consult to Physician [CONS] Stat Comment: Consulting Provider: [place] Reason For Exam: Physician to Consult Attending physician on discharge: Ajith Khan COURSE Hospital Course Hospital course: Ms. Hager is a 77 year old F history of ADHD, chronic kidney impairment, depressions, type 2 diabetes mellitus, essential hypertensions, presenting with 2-day history bilateral legs incoordination as well as 1 day history of slurred speech, facial droopiness, facial stiffness. There was no prior similar episode. Yesterday evening patient started to experience bilateral leg incoordination's. This morning at 830, she woke up with slurred speech, facial stiffness, and mild left facial droopiness. She denies any upper or lower extremity weakness or numbness. She denies confusions. She denies headaches. She denies nausea or vomiting. She denies chest pain or shortness of breath or palpitations. By now all her symptoms have resolved. NIH SS of 5 at presentation. Vital signs within normal limits. Labs significant for mild hyponatremia with serum sodium 128. UA suggesting the presence of urinary tract infections versus asymptomatic bacteriuria. CT of the head did not show any sign of intracranial bleed or acute ischemic stroke. CTA head and the neck showing atherosclerosis in the carotid bifurcations bilaterally causing a less than 50% stenosis in the right internal carotid and a non-hemodynamically significant stenosis of the left internal carotid. Admission request is called for TIA work-up. 10/28: NIH SS zero. 2D echocardiogram and MRI brain performed. Patient back to her baseline mentation and functions. Reached clinical stability. Decision made to discharge home with f/u with PCP 1-2 week made for her. Rx sent to pharmacy. All questions were answered prior to patient being physically discharged. Discharge diagnosis: Transient ischemic attack Time Spent with Patient Time attestation: Total time spent providing and/or coordinating discharge services: Time spent: Less than 30 minutes EXAM Constitutional Vitals: Temp Pulse Resp BP Pulse Ox O2 Del Method O2 Flow Rate 36.1 C 68 19 96/84 99 Nasal Cannula 2 10/28/22 08:02 10/28/22 08:02 10/28/22 08:02 10/28/22 08:02 10/28/22 08:02 10/28/22 08:02 10/28/22 08:02 General appearance: cooperative and no acute distress Head Head exam: Present atraumatic and normocephalic Eye Eye exam: Present EOMI and PERRL ENT ENT exam: Present mucous membranes moist, normal exam and normal external ear exam Neck Neck exam: Present normal inspection; Absent lymphadenopathy, tenderness or thyromegaly Respiratory Respiratory exam: Absent accessory muscle use, respiratory distress or wheezes Cardiovascular Cardiovascular exam: Present normal rate and rhythm; Absent JVD GI/Abdominal GI/Abdominal exam: Present normal bowel sounds and soft; Absent organomegaly or tenderness Extremities Exam Extremities exam: Present full ROM, normal capillary refill and normal inspection; Absent tenderness Neurological Exam Neurological exam: Present alert, CN II-XII intact and oriented X3; Absent motor sensory deficit Psychiatric Psychiatric exam: Present normal affect and normal mood; Absent anxious or depressed Skin Skin exam: Present dry and intact Discharge Data Data Completed and Pending Labs on day of discharge: Labs from last 24 hours 10/28/22 10/28/22 10/28/22 05:10 05:10 01:22 WBC RBC Hgb Hct POC Hct MCV MCH MCHC RDW Plt Count MPV Immature Gran % (Auto) Neut % (Auto) Lymph % (Auto) [place] % (Auto) Eos % (Auto) Baso % (Auto) Lymph # (Auto) [place] # (Auto) Eos # (Auto) Baso # (Auto) Immature Gran # Absolute Neutrophils POC PT POC INR APTT POC Sodium Sodium 131 L 128 L POC Potassium Potassium 3.8 3.2 L POC Chloride Chloride 96 95 L Carbon Dioxide 27 26 POC Total CO2 Anion Gap 8.0 7.0 L POC BUN BUN 17 19 Creatinine 0.9 0.9 POC Creatinine GFR Calculation 61 61 Glucose 116 H 127 H POC Glucose Hemoglobin A1c 6.6 H Estim Average Glucose 143 Calcium 8.4 L 8.4 L POC WB Ioniz Calcium Total Bilirubin Direct Bilirubin AST ALT Alkaline Phosphatase Total Protein Albumin Globulin Triglycerides 122 Cholesterol 170 LDL Cholesterol, Calc 93 Non-HDL Cholesterol 117 HDL Cholesterol 53 Urine Color Urine Appearance Urine pH Ur Specific [place] Urine Protein Urine Glucose (UA) Urine Ketones Urine Occult Blood Urine Nitrate Urine Bilirubin Urine Urobilinogen Ur Leukocyte Esterase Urine RBC Urine WBC Ur Squamous Epith Cells Urine Bacteria Ur Culture Indicated? POC Troponin I 10/27/22 10/27/22 10/27/22 18:16 12:41 11:19 WBC RBC Hgb Hct POC Hct MCV MCH MCHC RDW Plt Count MPV Immature Gran % (Auto) Neut % (Auto) Lymph % (Auto) [place] % (Auto) Eos % (Auto) Baso % (Auto) Lymph # (Auto) [place] # (Auto) Eos # (Auto) Baso # (Auto) Immature Gran # Absolute Neutrophils POC PT 12.8 POC INR 1.1 APTT POC Sodium Sodium 129 L POC Potassium Potassium 3.5 POC Chloride Chloride 92 L Carbon Dioxide 28 POC Total CO2 Anion Gap 9.0 POC BUN BUN 22 Creatinine 1.0 POC Creatinine GFR Calculation 54 Glucose 124 H POC Glucose Hemoglobin A1c Estim Average Glucose Calcium 8.9 POC WB Ioniz Calcium Total Bilirubin Direct Bilirubin AST ALT Alkaline Phosphatase Total Protein Albumin Globulin Triglycerides Cholesterol LDL Cholesterol, Calc Non-HDL Cholesterol HDL Cholesterol Urine Color Yellow Urine Appearance Clear Urine pH 7.0 Ur Specific [place] 1.038 Urine Protein Negative Urine Glucose (UA) Negative Urine Ketones Negative Urine Occult Blood Negative Urine Nitrate Negative Urine Bilirubin Negative Urine Urobilinogen Negative Ur Leukocyte Esterase 25 A Urine RBC < 1 Urine WBC < 1 Ur Squamous Epith Cells 0 Urine Bacteria None Ur Culture Indicated? No POC Troponin I 10/27/22 10/27/22 10/27/22 10:51 10:47 10:43 WBC RBC Hgb Hct POC Hct 42.0 MCV MCH MCHC RDW Plt Count MPV Immature Gran % (Auto) Neut % (Auto) Lymph % (Auto) [place] % (Auto) Eos % (Auto) Baso % (Auto) Lymph # (Auto) [place] # (Auto) Eos # (Auto) Baso # (Auto) Immature Gran # Absolute Neutrophils POC PT POC INR APTT POC Sodium 128 L Sodium POC Potassium 3.9 Potassium POC Chloride 90 L Chloride Carbon Dioxide POC Total CO2 29.0 Anion Gap POC BUN 23 H BUN Creatinine POC Creatinine 0.9 GFR Calculation Glucose POC Glucose 152 H Hemoglobin A1c Estim Average Glucose Calcium POC WB Ioniz Calcium 1.15 L Total Bilirubin 0.8 Direct Bilirubin < 0.2 AST 23 ALT 17 Alkaline Phosphatase 90 Total Protein 6.3 Albumin 4.0 Globulin 2.3 Triglycerides Cholesterol LDL Cholesterol, Calc Non-HDL Cholesterol HDL Cholesterol Urine Color Urine Appearance Urine pH Ur Specific [place] Urine Protein Urine Glucose (UA) Urine Ketones Urine Occult Blood Urine Nitrate Urine Bilirubin Urine Urobilinogen Ur Leukocyte Esterase Urine RBC Urine WBC Ur Squamous Epith Cells Urine Bacteria Ur Culture Indicated? POC Troponin I < 0.02 10/27/22 10/27/22 10:43 10:43 WBC 6.7 RBC 4.84 Hgb 13.5 Hct 40.2 POC Hct MCV 83.1 MCH 27.9 MCHC 33.6 RDW 13.0 Plt Count 212 MPV 9.5 Immature Gran % (Auto) 0.3 Neut % (Auto) 58.8 Lymph % (Auto) 30.3 [place] % (Auto) 8.4 Eos % (Auto) 1.4 Baso % (Auto) 0.8 Lymph # (Auto) 2.02 [place] # (Auto) 0.56 Eos # (Auto) 0.09 Baso # (Auto) 0.05 Immature Gran # 0.02 Absolute Neutrophils 3.92 POC PT POC INR APTT 30.1 POC Sodium Sodium POC Potassium Potassium POC Chloride Chloride Carbon Dioxide POC Total CO2 Anion Gap POC BUN BUN Creatinine POC Creatinine GFR Calculation Glucose POC Glucose Hemoglobin A1c Estim Average Glucose Calcium POC WB Ioniz Calcium Total Bilirubin Direct Bilirubin AST ALT Alkaline Phosphatase Total Protein Albumin Globulin Triglycerides Cholesterol LDL Cholesterol, Calc Non-HDL Cholesterol HDL Cholesterol Urine Color Urine Appearance Urine pH Ur Specific [place] Urine Protein Urine Glucose (UA) Urine Ketones Urine Occult Blood Urine Nitrate Urine Bilirubin Urine Urobilinogen Ur Leukocyte Esterase Urine RBC Urine WBC Ur Squamous Epith Cells Urine Bacteria Ur Culture Indicated? POC Troponin I Discharge Plan Patient/Caregiver Discharge Instructions Activity: increase activity as tolerated Diet: Consistent Carbohydrate Instructions: Transient Ischemic Attack (GEN) Prescriptions: New Aspirin 81 mg PO DAILY 30 Days Qty: 30 1RF atorvastatin 40 mg Tablet 40 mg PO DAILY 30 Days Qty: 30 1RF sulfamethoxazole-trimethoprim 800-160 mg Tablet 1 tab PO BID 2 Days Qty: 4 0RF Continued trazodone 50 mg tablet 50 mg PO QHS Qty: 90 0RF (DME) FreeStyle Lite Strips Strip See Dose Instructions .ROUTE .MEDSUPPLY MDD 1 Qty: 100 5RF Dose Instruction: As directed Rx Instructions: As directed testing blood glucose once daily. Trulicity 0.75 mg/0.5 mL pen injector 1.5 mg subcut QWEEK Qty: 4 2RF pen needle, diabetic 32 gauge x 5/16" needle See Rx Instructions .ROUTE .COMPLEX Qty: 100 3RF Dose Instruction: USE ONCE DAILY WITH INSULIN Rx Instructions: USE ONCE DAILY WITH INSULIN albuterol sulfate 90 mcg/actuation HFA aerosol inhaler 2 puff inhalation Q4H PRN (Reason: shortness of breath or wheezing) Qty: 17 1RF lidocaine 5 % adhesive patch,medicated 1 patch topical QDAY PRN (Reason: pain) Qty: 15 0RF Rx Instructions: Apply to most painful area for up to 12 hrs/day. Calcium 600 with Vitamin D3 600 mg-10 mcg (400 unit) tablet,chewable 1 tab PO BID triamcinolone acetonide [Nasacort] 55 mcg aerosol,spray 1 spray intranasal QDAY PRN (Reason: Congestion) Rx Instructions: administer into each nostril zolpidem [Ambien] 5 mg tablet 5 mg PO QHS PRN (Reason: sleep) Qty: 2 0RF Rx Instructions: For sleep study. Take 1 tab if unable to fall asleep. Repeat if unable to fall asleep 30 min later. Please have ride home from testing ondansetron 4 mg tablet,disintegrating 4 mg PO Q8H PRN (Reason: nausea and vomiting) Qty: 10 0RF methylphenidate HCl 18 mg tablet extended release 24hr 18 mg PO QAM Qty: 28 0RF potassium chloride 10 mEq tablet extended release 10 meq PO BID Qty: 180 1RF pantoprazole 40 mg tablet,delayed release (DR/EC) 40 mg PO QDAY Qty: 14 0RF Rx Instructions: decreased frequency methimazole 10 mg tablet 10 mg PO .4 times week Rx Instructions: thursday, thursday, , thursday cholecalciferol (vitamin D3) 25 mcg (1,000 unit) capsule 25 mcg PO QDAY Levemir FlexTouch U-100 Insuln 100 unit/mL (3 mL) insulin pen 16 unit SUB-Q QHS 90 Days Qty: 14.4 4RF gabapentin 100 mg capsule 100 mg PO QHS Qty: 30 0RF (DME) Prothestic Bra See Rx Instructions .Route .MEDSUPPLY Qty: 1 0RF Rx Instructions: As directed montelukast 10 mg tablet 10 mg PO QHS Qty: 30 3RF (DME) wedge pillow See Rx Instructions .Route .MEDSUPPLY Qty: 1 0RF Rx Instructions: As directed fluorometholone [FML Liquifilm] 0.1 % drops,suspension 1 drp OPHTHALMIC (EYE) DAILY Patient Comments: [NO ORIGINAL SIG] losartan-hydrochlorothiazide [Hyzaar] 100-25 mg tablet 1 tab PO QAM amlodipine 5 mg Tablet 5 mg PO QHS bupropion HCl 150 mg tablet extended release 24 hr 300 mg PO QAM Patient Comments: [NO ORIGINAL SIG] donepezil 5 mg Tablet 5 mg PO QHS metoprolol tartrate 25 mg Tablet 12.5 mg PO BID Follow Up Plan Follow up with: Scottie Mittal MD [Physician] - (Follow up with your current appointment.) Paramjit Hunt MD [Primary Care Provider] - (Dr. Hunt's office will contact you to schedule an apointment.) Patient Disposition: Home, Self-Care Rehab Potential: Good I certify that the patient requires SNF services: No Overall status at discharge: patient is back to baseline Discharge Orders: Discharge Order (Routine); Ordered 10/28/22 Ordered By: Ajith Khan
== END 2022-10-28 10:45 | disposition home or self-care (01) ==
LOC: ICU 10:32 → ED 10:32 → ICU 17:00
PROVIDERS: ADMIT Internal Medicine; ATTEND Internal Medicine